=== PATIENT | female | born 1980 | race Hispanic/Latino ===

== ENCOUNTER → 2019-03-14 | Outpatient (CLI) | payer OTHER ==
[2019-03-14 13:42] LABS: ALBUMIN 3.9 g/dL (3.5-5.0); BILIRUBIN,TOTAL 0.4 mg/dL (0.2-1.0); CREATININE 0.7 mg/dL (0.5-1.5); POTASSIUM 3.7 mmol/L (3.5-5.1); THYROID STIMULATING HORMONE 0.34 uIU/mL (0.36-3.74); TOTAL PROTEIN, SERUM 7.7 g/dL (6.0-8.3)
== END | disposition home or self-care (01) ==
LOC: LAB 12:13
PROVIDERS: ATTEND Internal Medicine Endocrinology, Diabetes & Metabolism
DX: C73 Malignant neoplasm of thyroid gland (principal); E03.9 Hypothyroidism, unspecified
CPT/HCPCS: 36415; 80053; 80061; 84439; 84443; 86800

== ENCOUNTER → 2019-03-19 | Outpatient (CLI) | payer OTHER | END | disposition home or self-care (01) | LOC: RAH 11:34 | PROVIDERS: ATTEND Internal Medicine Endocrinology, Diabetes & Metabolism | DX: C73 Malignant neoplasm of thyroid gland (principal) | CPT/HCPCS: 76536 ==

== ENCOUNTER 2019-04-27 15:44 | Observation (INO) | payer OTHER ==
[~2019-04-27] VITALS: Ht 157.5 cm; Wt 72.6 kg
[2019-04-27] MEDS ORDERED: SODIUM CHLORIDE 0.9% 1000ML 2,000 ML IV ONE (16:02)
[2019-04-27 16:07] LABS: BASOPHILS % (AUTO) 0.8 % (0.0-5.0); EOSINOPHILS % (AUTO) 2.4 % (0.0-8.0); HEMATOCRIT 40.9 % (36-48); LYMPHOCYTES % (AUTO) 24.2 % (21.0-51.0); MEAN CORPUSCULAR VOLUME 81.8 fL (79-99); MONOCYTES % (AUTO) 5.1 % (3.0-13.0); NEUTROPHILS % (AUTO) 67.5 % (40.0-77.0); PLATELET COUNT (AUTO) 360 K/uL (130-400); RED BLOOD CELL COUNT(AUTO) 4.99 MIL/uL (4.00-5.50); RED CELL DISTRIBUTION WIDTH 14.2 % (11.0-15.5); WHITE BLOOD COUNT (AUTO) 8.6 K/uL (4.8-10.8)
[2019-04-27] MEDS ORDERED: ZOSYN 3.375GM+NS 50ML 50 ML IV ONE (16:18)
[2019-04-27 16:22] LABS: CREATININE 0.7 mg/dL (0.5-1.5)
[2019-04-27 16:25] LABS: INR 0.95 (0.85-1.15); PARTIAL THROMBOPLASTIN TIME 27.8 SEC (26.3-35.5)
[2019-04-27 16:33] LABS: ALBUMIN 3.6 g/dL (3.5-5.0); BILIRUBIN,TOTAL 0.3 mg/dL (0.2-1.0); TOTAL PROTEIN, SERUM 7.2 g/dL (6.0-8.3)
[2019-04-27 16:37] LABS: CREATINE KINASE, TOTAL 79 U/L (21-232); MYOGLOBIN 14 ng/mL (10-92); THYROID STIMULATING HORMONE 0.51 uIU/mL (0.36-3.74); TROPONIN I < 0.04 ng/mL (0.00-0.06)
[2019-04-27 16:48] LABS: T4 (THYROXINE) 9.4 ug/dL (4.7-13.3)
[2019-04-27] MEDS ORDERED: POTASSIUM CHLORIDE 20 MEQ ERTAB PO ONE (17:21)
[2019-04-27 18:52] LABS: APPEARANCE,URINE Clear (CLEAR); BILIRUBIN,URINE Negative (NEGATIVE); COLOR,URINE Yellow (YELLOW); GLUCOSE, URINE (UA) Negative (NEGATIVE); KETONES,URINE Negative (NEGATIVE); LEUKOCYTE ESTERASE ,URINE Trace (NEGATIVE); NITRATE,URINE Negative (NEGATIVE); OCCULT BLOOD,URINE Small (NEGATIVE); PROTEIN,URINE Negative (NEGATIVE); UROBILINOGEN,URINE 0.2 mg/dL (0.2-1.0)
[2019-04-27] MEDS ORDERED: CEFTRIAXONE SODIUM 1 GM ONE (19:28)
[2019-04-27 19:29] LABS: BACTERIA,URINE Few /HPF (None Seen); RBC,URINE None Seen /HPF (0-1); SQUAMOUS EPITHELIAL CELL,UR 0-2 /HPF (0-2); WBC,URINE 0-1 /HPF (0-1)
[2019-04-27] MEDS ORDERED: 1/2 NORMAL SALINE 1,000 ML IV SCH (21:30)
[2019-04-27] MEDS ORDERED: ACETAMINOPHEN 325 MG TAB PO PRN ×2 (21:30)
[2019-04-27] MEDS ORDERED: 1/2 NORMAL SALINE 1,000 ML IV ONE (22:26)
[2019-04-27 23:30] VITALS: BP 107/70
[2019-04-27] MEDS ORDERED: HYDR-3420 PO (23:40)
[2019-04-27] MEDS ORDERED: VALS320T16 PO (23:40)
[2019-04-27] MEDS ORDERED: AMLO10TA7 PO (23:40)
--- NOTE | 2019-04-27 23:43 | NUR ---
ADMISSION. PT ADMITTED FROM ER, TRANSFERRED VIA STRETCHER. PT AWAKE, ALERT AND RESPONSIVE, NO C/O PAIN OR DIZZINESS AT THIS TIME. VS ASSESSED UPON ADMISSION. PT ORIENTED TO ROOM, CALL JEAN WITHIN REACH, BED IN LOWEST POSITION. Addendum: 04/28/19 at 0025 by GLADIS BOSWELL RN Amended: Links added.
[2019-04-27] MEDS ORDERED: LEVO125 PO (23:51)
[2019-04-28 03:00] VITALS: BP 112/67
[2019-04-28 04:40] LABS: MEAN CORPUSCULAR HEMOGLOBIN 27.2 pg (27.0-33.0); MEAN CORPUSCULAR HGB CONC 33.3 g/dL (32.0-36.0); MEAN CORPUSCULAR VOLUME 81.7 fL (79-99); PLATELET COUNT (AUTO) 310 K/uL (130-400); RED BLOOD CELL COUNT(AUTO) 4.28 MIL/uL (4.00-5.50); RED CELL DISTRIBUTION WIDTH 13.9 % (11.0-15.5); WHITE BLOOD COUNT (AUTO) 8.4 K/uL (4.8-10.8)
[2019-04-28 04:51] LABS: ALBUMIN 2.6 g/dL (3.5-5.0); BILIRUBIN,TOTAL 0.2 mg/dL (0.2-1.0); CREATININE 0.7 mg/dL (0.5-1.5); POTASSIUM 3.7 mmol/L (3.5-5.1); TOTAL PROTEIN, SERUM 5.5 g/dL (6.0-8.3)
[2019-04-28] MEDS ORDERED: LEVOTHYROXINE 88 MCG TABLET PO SCH (07:30)
[2019-04-28 08:00] VITALS: BP 119/76
--- NOTE | 2019-04-28 08:32 | NUR ---
PT D/C WITH EDUCATION GIVEN USING TEACH BACK SUCESSFULLY IV REMOVED , CATHETER INTACT RX GIVEN
[2019-04-28] MEDS ORDERED: CEFTRIAXONE SODIUM 1 GM IVP SCH (17:00)
== END 2019-04-28 09:00 | disposition home or self-care (01) ==
LOC: EDH 15:44 → EDHIP 19:56 → 4BH 23:24
PROVIDERS: ADMIT Internal Medicine; ATTEND Internal Medicine
DX: I95.9 Hypotension, unspecified (principal); E86.0 Dehydration; E87.6 Hypokalemia; I10 Essential (primary) hypertension; Z85.850 Personal history of malignant neoplasm of thyroid; Z90.89 Acquired absence of other organs; Z79.899 Other long term (current) drug therapy; Z79.01 Long term (current) use of anticoagulants
CPT/HCPCS: 36415 ×2; 71045; 80053 ×2; 81001; 81025; 82550 ×2; 83605; 83735; 83874 ×2; 84436; 84443; 84484 ×2; 85025; 85027; 85610; 85730; 87040 ×2; 87088; 93005; 99284; G0378 ×13; J0696; J2543; J7030

== ENCOUNTER → 2020-03-28 | Outpatient (CLI) | payer OTHER ==
[~2020-03-28] MED LIST: AMLO10TA7 PO; HYDR-3420 PO; LEVO125 PO; VALS320T16 PO
[2020-03-28 16:03] LABS: BILIRUBIN,TOTAL 0.5 mg/dL (0.2-1.0); CREATININE 0.8 mg/dL (0.5-1.5); POTASSIUM 3.4 mmol/L (3.5-5.1); THYROID STIMULATING HORMONE 1.02 uIU/mL (0.36-3.74); TOTAL PROTEIN, SERUM 8.1 g/dL (6.0-8.3)
== END | disposition home or self-care (01) ==
LOC: LAB 15:06
PROVIDERS: ATTEND Internal Medicine Endocrinology, Diabetes & Metabolism
DX: E03.9 Hypothyroidism, unspecified (principal); C73 Malignant neoplasm of thyroid gland
CPT/HCPCS: 36415; 80053; 84439; 84443